=== PATIENT | male | born 1955 | race Caucasian/White ===

== ENCOUNTER → 2020-12-08 | Outpatient (CLI) | payer OTHER ==
[~2020-12-08] MED LIST: IBUP-1902 PO
[2020-12-08 08:40] LABS: MICROSCOPIC NOT IND
== END | disposition home or self-care (01) ==
LOC: STAR 07:46
PROVIDERS: ATTEND Urology
DX: Z01.812 Encounter for preprocedural laboratory examination (principal); Z20.822 Contact with and (suspected) exposure to COVID-19; N35.016 Post-traumatic urethral stricture, male, overlapping sites
CPT/HCPCS: 81003; 87086; 93005; U0003

== ENCOUNTER 2020-12-12 11:11 | Day surgery (SDC) | payer OTHER ==
[~2020-12-12] VITALS: Ht 193 cm; Wt 111.6 kg
[2020-12-12 11:32] VITALS: BP 164/89
[2020-12-12] MEDS ORDERED: CHLORHEXIDINE 15 ML UDC PO ONE (12:00)
[2020-12-12] MEDS ORDERED: LACTATED RINGERS 1,000 ML IV SCH (12:00)
[2020-12-12] MEDS ORDERED: MIDAZOLAM 1 MG/ML, 2ML ONE (13:10)
[2020-12-12] MEDS ORDERED: FENTANYL PF 250 MCG/5ML ONE (13:10)
[2020-12-12] MEDS ORDERED: ROCURONIUM 10MG/ML,5ML ONE (13:11)
[2020-12-12] MEDS ORDERED: PROPOFOL 10 MG/ML, 20ML ONE (13:33)
[2020-12-12] MEDS ORDERED: DEXAMETHASONE 4 MG/ML, 1ML ONE (13:33)
[2020-12-12] MEDS ORDERED: ONDANSETRON 2MG/ML, 2ML ONE (13:33)
[2020-12-12] MEDS ORDERED: BACITRACIN OINT 500U/GM, 15 GM ONE (13:47)
[2020-12-12] MEDS ORDERED: BUPIVACAINE/PF 0.5% ONE (13:47)
[2020-12-12] MEDS ORDERED: BACITRACIN 50,000 UNIT ONE (13:48)
[2020-12-12] MEDS ORDERED: EPINEPHRINE 1 MG/ML, 1ML ONE (13:48)
[2020-12-12] MEDS ORDERED: VANCOMYCIN 1,000 MG ONE (13:48)
[2020-12-12] MEDS ORDERED: LIDOCAINE/PF 1%-EPI 1:200K, 30 ML ONE (14:18)
[2020-12-12] MEDS ORDERED: BUPIVACAINE/PF 0.25% ONE (14:18)
[2020-12-12] MEDS ORDERED: CEFTRIAXONE 1,000 MG ONE (14:19)
[2020-12-12] MEDS ORDERED: ACETAMINOPHEN 650 MG/20.3 ML UDC ONE (16:48)
[2020-12-12] MEDS ORDERED: ACETAMINOPHEN 325 MG TABLET PO PRN ×2 (17:30→18:00)
[2020-12-12] MEDS ORDERED: ONDANSETRON 2MG/ML, 2ML IVPush PRN (18:00)
[2020-12-12] MEDS ORDERED: LABETALOL 5MG/ML, 20ML IV PRN (18:00)
[2020-12-12] MEDS ORDERED: MEPERIDINE/PF 25MG/0.5ML IVPush PRN (18:00)
[2020-12-12] MEDS ORDERED: FENTANYL PF 100 MCG/2ML IV PRN (18:00)
[2020-12-12] MEDS ORDERED: OXYcodone 5 MG/5 ML ORAL.SOL UDC PO PRN (18:00)
[2020-12-12] MEDS ORDERED: PROMETHAZINE 25 MG/ML, 1ML IVPush PRN (18:00)
[2020-12-12] MEDS ORDERED: hydrALAzine 20 MG/ML, 1ML IV PRN (18:00)
[2020-12-12] MEDS ORDERED: HYDROmorphone 1 MG/ML, 1ML INJ IVPush PRN (18:00)
== END 2020-12-12 19:45 | disposition home or self-care (01) ==
LOC: OR 11:11 → ORIP 19:30 → OR 19:45 → ORIP 23:18 → OR 23:18
PROVIDERS: ATTEND Urology
DX: N35.016 Post-traumatic urethral stricture, male, overlapping sites (principal); M19.90 Unspecified osteoarthritis, unspecified site; Z98.890 Other specified postprocedural states; Z79.899 Other long term (current) drug therapy; Z85.46 Personal history of malignant neoplasm of prostate
CPT/HCPCS: 40818; 53400; 88305; J0171; J0696; J1100; J2250; J2405; J2704; J3010; J7120; J3370

== ENCOUNTER 2021-01-30 15:23 | Inpatient (IN) | payer OTHER ==
[~2021-01-30] VITALS: Ht 193 cm; Wt 112.0 kg
--- NOTE | 2021-01-30 16:17 | NUR ---
PT C/O LEFT CP STARTED ABOUT 1445 WHILE GETTING READY FOR WORK. PAIN IS WORSE WHILE TAKING A DEEP BREATH. PT DENIES HEART HX. PT CONNECTED TO MONITORING. CALL LIGHT IN REACH. ERMD AT BEDSIDE FOR ASSESSMENT. TASK RN PLACED PIV AND LABS DRAWN.
[2021-01-30] MEDS ORDERED: ASPIRIN 81 MG TABLET CHEW ONE (16:51)
--- NOTE | 2021-01-30 16:59 | NUR ---
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 XRAY AT BEDSIDE.
[2021-01-30 17:03] LABS: BASOPHILS % (AUTO) 0 % (0-1); EOSINOPHILS % (AUTO) 2 % (1-7); LYMPHOCYTES % (AUTO) 14 % (22-44); MEAN CORPUSCULAR HEMOGLOBIN 28.3 pg (27.5-34.5); MEAN CORPUSCULAR HGB CONC 33.2 g/dL (33.2-36.2); MEAN PLATELET VOLUME 7.7 fL (7.4-10.4); MONOCYTES % (AUTO) 9 % (2-9); NEUTROPHILS % (AUTO) 74 % (42-75); PLATELET COUNT 188 x10^3/uL (130-400); RED BLOOD COUNT 5.32 x10^6/uL (4.38-5.82); RED CELL DISTRIBUTION WIDTH 15.4 % (9.4-14.8)
[2021-01-30 17:04] LABS: MD NO
[2021-01-30 17:15] LABS: ALANINE AMINOTRANSFERASE 30 U/L (12-78); ALBUMIN 3.4 g/dL (3.4-5.0); ANION GAP 7 mmol/L (5-15); CALCIUM 8.4 mg/dL (8.5-10.1); CHLORIDE 108 mmol/L (98-107); CREATININE 1.47 mg/dL (0.7-1.3)
[2021-01-30 17:19] LABS: ALKALINE PHOSPHATASE 63 U/L (45-117); BILIRUBIN,TOTAL 0.4 mg/dL (0.2-1.0); TROPONIN I < 0.015 ng/mL (0.000-0.045)
[2021-01-30] MEDS ORDERED: SODIUM CHLORIDE FLUSH 10ML SYR IVF ONE (17:30)
[2021-01-30] MEDS ORDERED: ASPIRIN 81 MG TABLET CHEW PO ONE (17:30)
--- NOTE | 2021-01-30 17:42 | NUR ---
N/O FOR CT. IVF RUNNING. PT GOING TO CT.
[2021-01-30] MEDS ORDERED: SODIUM CHLORIDE 0.9%, 500ML IVBOLUS ONE (18:00)
--- NOTE | 2021-01-30 18:01 | NUR ---
PT BACK FROM CT. PT RECONNECTED TO MONITORING. CALL LIGHT IN REACH.
--- NOTE | 2021-01-30 18:12 | NUR ---
ALL RESULTS ARE BACK AT THIS TIME. CHART UP FOR RECHECK.
--- NOTE | 2021-01-30 18:25 | NUR ---
TASK RN: PT REFUSED URINAL, AMBULATED TO/BACK TO RESTROOM W/O COMPLICATIONS. VSS, NADN. CALL LIGHT W/IN REACH.
--- NOTE | 2021-01-30 18:28 | NUR ---
BEDSIDE DISCUSSING POC W/ PT
--- NOTE | 2021-01-30 18:51 | NUR ---
[facility]
--- NOTE | 2021-01-30 18:53 | NUR ---
REPORT RECEIVED FROM CHRISTOPHER FERRER RN. PT SITTING EDGE OF [place] BRAN[place], CONNECTED TO ALL MONITORING. CALL LIGHT IN REACH.
[2021-01-30] MEDS ORDERED: DOCUSATE 100 MG CAPSULE PO PRN (19:00)
[2021-01-30] MEDS ORDERED: LORazepam 2 MG/ML, 1ML IVPush PRN (19:00)
[2021-01-30] MEDS ORDERED: POLYETHYLENE GLYCOL 17 GM PACKET PO PRN (19:00)
[2021-01-30] MEDS ORDERED: ONDANSETRON 2MG/ML, 2ML IVPush PRN (19:00)
[2021-01-30] MEDS ORDERED: APIXABAN 5 MG TABLET PO SCH (19:00)
[2021-01-30] MEDS ORDERED: BISACODYL 10 MG SUPP PR PRN (19:00)
[2021-01-30] MEDS ORDERED: hydrALAzine 20 MG/ML, 1ML IVPush PRN (19:00)
[2021-01-30] MEDS ORDERED: OXYcodone IR 5MG TABLET PO PRN (19:00)
[2021-01-30] MEDS ORDERED: APIXABAN 5 MG TABLET ONE (19:09)
--- NOTE | 2021-01-30 19:12 | NUR ---
KARYN ADMIN PER NOV.
--- NOTE | 2021-01-30 19:44 | NUR ---
REPORT GIVEN TO ISAURO VILA. PT RTG TO ROOM [id number]
--- NOTE | 2021-01-30 19:57 | NUR ---
PT AT IMAGING
[2021-01-30 20:45] VITALS: BP 146/85
[2021-01-30] MEDS ORDERED: MELATONIN 5 MG TABLET PO PRN (21:00)
[2021-01-30] MEDS ORDERED: TEMAZEPAM 15 MG CAPSULE PO PRN (21:00)
[2021-01-30 22:17] LABS: TROPONIN I < 0.015 ng/mL (0.000-0.045)
[2021-01-31 01:33] VITALS: BP 131/86
[2021-01-31] MEDS ORDERED: OMNIPAQUE 350 MG/ML, 100ML BOTTLE ONE (02:34)
[2021-01-31] MEDS: ACETAMINOPHEN 325 MG TABLET PO PRN ×2 (04:03→09:45)
[2021-01-31 06:21] LABS: BASOPHILS % (AUTO) 1 % (0-1); EOSINOPHILS % (AUTO) 1 % (1-7); LYMPHOCYTES % (AUTO) 11 % (22-44); MEAN CORPUSCULAR HEMOGLOBIN 28.8 pg (27.5-34.5); MEAN CORPUSCULAR HGB CONC 33.4 g/dL (33.2-36.2); MEAN PLATELET VOLUME 7.3 fL (7.4-10.4); MONOCYTES % (AUTO) 10 % (2-9); NEUTROPHILS % (AUTO) 79 % (42-75); PLATELET COUNT 164 x10^3/uL (130-400); RED BLOOD COUNT 5.07 x10^6/uL (4.38-5.82); RED CELL DISTRIBUTION WIDTH 15.4 % (9.4-14.8)
[2021-01-31 06:22] LABS: MD NO
[2021-01-31 06:32] LABS: ANION GAP 4 mmol/L (5-15); CALCIUM 8.3 mg/dL (8.5-10.1); CHLORIDE 106 mmol/L (98-107); CREATININE 1.06 mg/dL (0.7-1.3)
[2021-01-31] MEDS ORDERED: HEPARIN 5,000 UNITS/ML, 1ML IV ONE (07:00)
[2021-01-31] MEDS ORDERED: HEPARIN 5,000 UNITS/ML, 1ML IV PRN (07:00)
[2021-01-31] MEDS ORDERED: HEPARIN 25,000 UNITS/250ML PMX 250 ML IV PRN (07:00)
[2021-01-31 07:19] VITALS: BP 147/77
[2021-01-31] MEDS: FAMOTIDINE 20 MG TABLET PO SCH (07:51)
[2021-01-31] MEDS: ACETAMINOPHEN 500 MG TABLET PO SCH (10:00)
[2021-01-31] MEDS: ENOXAPARIN 120MG/0.8ML SQ SCH ×2 (11:22→22:59)
[2021-01-31 12:27] VITALS: BP 154/89
[2021-01-31] MEDS: HYDROcodone/APAP 5/325 TABLET PO PRN ×3 (14:14→19:53)
[2021-01-31] MEDS ORDERED: ACETAMINOPHEN 325 MG TABLET PO PRN (17:00)
[2021-01-31 19:47] VITALS: BP 129/84
[2021-02-01] MEDS: HYDROcodone/APAP 5/325 TABLET PO PRN ×2 (00:45→07:00)
[2021-02-01 00:51] VITALS: BP 164/96
[2021-02-01 05:07] LABS: BASOPHILS % (AUTO) 0 % (0-1); EOSINOPHILS % (AUTO) 1 % (1-7); LYMPHOCYTES % (AUTO) 16 % (22-44); MEAN CORPUSCULAR HEMOGLOBIN 29.3 pg (27.5-34.5); MEAN CORPUSCULAR HGB CONC 34.1 g/dL (33.2-36.2); MEAN PLATELET VOLUME 7.6 fL (7.4-10.4); MONOCYTES % (AUTO) 11 % (2-9); NEUTROPHILS % (AUTO) 72 % (42-75); PLATELET COUNT 188 x10^3/uL (130-400); RED BLOOD COUNT 5.42 x10^6/uL (4.38-5.82); RED CELL DISTRIBUTION WIDTH 15.1 % (9.4-14.8)
[2021-02-01 05:19] LABS: ANION GAP 5 mmol/L (5-15); CALCIUM 8.7 mg/dL (8.5-10.1); CHLORIDE 103 mmol/L (98-107)
[2021-02-01 05:20] LABS: MD NO
[2021-02-01 07:00] VITALS: BP 126/83
[2021-02-01] MEDS: FAMOTIDINE 20 MG TABLET PO SCH (08:58)
[2021-02-01] MEDS: ENOXAPARIN 120MG/0.8ML SQ SCH (09:54)
[2021-02-01 12:26] VITALS: BP 145/91
[2021-02-01] MEDS ORDERED: APIX5TAB PO ×3 (12:54→12:57)
[2021-02-01] MEDS ORDERED: HYDR-2214 PO (12:54)
[2021-02-06] MEDS ORDERED: APIXABAN 5 MG TABLET PO SCH (21:00)
[2021-02-07] MEDS ORDERED: APIXABAN 5 MG TABLET PO SCH (21:00)
== END 2021-02-01 15:00 | disposition home or self-care (01) | DRG 175 ==
LOC: ED 18:24 → EDIP 18:43 → 4EST 20:33 → DCLOUNGE 02-01 14:46
PROVIDERS: ADMIT Internal Medicine; ATTEND Internal Medicine
DX: I26.99 Other pulmonary embolism without acute cor pulmonale (principal); N17.0 Acute kidney failure with tubular necrosis; I82.441 Acute embolism and thrombosis of right tibial vein; J98.11 Atelectasis; I82.431 Acute embolism and thrombosis of right popliteal vein; D64.89 Other specified anemias; Z85.46 Personal history of malignant neoplasm of prostate
CPT/HCPCS: 36415; 73564; 96360; 99285; C8929; 71045; 71275; 76770; 80048; 80053; 83735; 84100; 84484; 85025; 85379; 85520; 93005; 93970; G0378; J1644; J1650; Q9957; Q9967; J7040